=== PATIENT | male | born 1945 | race Caucasian/White ===

== ENCOUNTER 2018-05-04 07:39 | Emergency (ER) | payer MEDICARE ==
[~2018-05-04] VITALS: Ht 172.7 cm; Wt 80.0 kg
[~2018-05-04 07:39] MED LIST: DABI150C PO; LEVO25TA7 PO; OMEP20CA10 PO; TRAM50TA3 PO
[2018-05-04] MEDS ORDERED: LORAZEPAM 1MG TABLET PO ONE (10:15)
[2018-05-04] MEDS ORDERED: IBUPROFEN 600MG TABLET PO ONE (10:15)
[2018-05-04 11:10] VITALS: BP 157/80
== END 2018-05-04 12:04 | disposition home or self-care (01) ==
LOC: ER 08:13
DX: S82.491A Other fracture of shaft of right fibula, initial encounter for closed fracture (principal); F12.10 Cannabis abuse, uncomplicated; V19.88XA Pedal cyclist (driver) (passenger) injured in other specified transport accidents, initial encounter; Y93.I9 Activity, other involving external motion; Y92.89 Other specified places as the place of occurrence of the external cause; Y99.8 Other external cause status; Z88.5 Allergy status to narcotic agent
CPT/HCPCS: 29515; 73610; 99284